=== PATIENT | female | born 2000 | race American Indian/Alaskan Native ===

== ENCOUNTER 2023-11-28 03:31 | Emergency (ER) | payer SELFPAY ==
[2023-11-28] MEDS: Alum Hydro/Mag Hydro/Simeth XS 15 ML, Lidocaine 2% 5 ML PO ONE (04:07)
[2023-11-28] MEDS: Sodium Chloride 0.9% 10 ML Syringe FLUSH PRN (04:17)
[2023-11-28] MEDS: Sodium Chloride 0.9% 2.5 ML Syringe FLUSH PRN (04:17)
[2023-11-28 04:19] LABS: BASOPHILS ABSOLUTE AUTO 0.03 K/uL (0.00-0.20); BASOPHILS PERCENT AUTO 0.2 % (0.0-1.0); EOSINOPHILS ABSOLUTE AUTO 0.21 K/uL (0.00-0.45); EOSINOPHILS PERCENT AUTO 1.7 % (0.0-6.0); HEMATOCRIT 37.7 % (37.0-47.0); HEMOGLOBIN 11.8 g/dL (12.0-16.0); IMMATURE GRAN ABSOLUTE AUTO 0.06 K/uL (0.00-0.05); IMMATURE GRAN PERCENT AUTO 0.5 % (0.0-0.4); LYMPHOCYTES ABSOLUTE AUTO 3.68 K/uL (1.00-4.80); LYMPHOCYTES PERCENT AUTO 30.2 % (24.0-44.0); MEAN CORPUSCULAR HEMOGLOBIN 27.1 pg (28.0-32.0); MEAN CORPUSCULAR HGB CONC 31.3 g/dL (32.0-36.0); MEAN CORPUSCULAR VOLUME 86.7 fL (83.0-99.0); MEAN PLATELET VOLUME 10.1 fL (9.4-12.3); MONOCYTES ABSOLUTE AUTO 0.63 K/uL (0.00-0.80); MONOCYTES PERCENT AUTO 5.2 % (0.0-8.0); NEUTROPHILS ABSOLUTE AUTO 7.56 K/uL (1.80-7.70); NEUTROPHILS PERCENT AUTO 62.2 % (41.0-71.0); PLATELET COUNT,PLT 320 K/uL (150-400); RED BLOOD CELL COUNT 4.35 M/uL (4.10-5.30); WHITE BLOOD CELL COUNT,WBC 12.17 K/uL (3.9-11.3)
[2023-11-28 04:46] LABS: A/G RATIO 0.8 (0.9-1.6); ALANINE AMINOTRANSFERASE,ALT 85 IU/L (14-63); ALBUMIN 3.1 g/dL (3.4-5.0); ALKALINE PHOSPHATASE 118 U/L (46-116); ASPARTATE AMNIOTRANSFERASE,AST 163 IU/L (15-37); BILIRUBIN TOTAL 0.2 mg/dL (0.2-1.0); BLOOD UREA NITROGEN,BUN 21 mg/dL (7.0-18.0); CALCIUM 8.2 mg/dL (8.5-10.1); CARBON DIOXIDE,CO2 26.6 mmol/L (21.0-32.0); CHLORIDE,CL 105 mmol/L (98-107); CREATININE 0.8 mg/dL (0.6-1.0); EST CRCL DRUG DOSING (CG) 99.25 mL/min; GLUCOSE RANDOM 92 mg/dL (74-106); LIPASE 72 U/L (16-77); POTASSIUM,K 4.4 mmol/L (3.5-5.1); PROTEIN TOTAL,TP 6.8 g/dL (6.4-8.2); SODIUM,NA 140 mmol/L (136-145)
[2023-11-28 04:59] LABS: ESTIMATED GFR 107 mL/min (>60)
[2023-11-28 05:33] LABS: AMPHETAMINES SCREEN, URINE NEGATIVE (CUTOFF=500); BARBITURATE SCREEN,URINE NEGATIVE (CUTOFF=200); BENZODIAZEPINES SCREEN,URINE NEGATIVE (CUTOFF=150); BUPRENORPHINE SCREEN,URINE NEGATIVE (CUTOFF=10); METHADONE SCREEN, URINE NEGATIVE (CUTOFF=200); METHAMPHETAMINES SCREEN, URINE NEGATIVE (CUTOFF=500); OXYCODONE SCREEN,URINE NEGATIVE (CUT0FF=100); PCP SCREEN,URINE NEGATIVE (CUTOFF=25); THC SCREEN,URINE 20 NG/ML NEGATIVE (CUTOFF=50)
== END 2023-11-28 09:29 | disposition home or self-care (01) ==
LOC: MW.ED 03:31
DX: K80.50 Calculus of bile duct without cholangitis or cholecystitis without obstruction (principal)
CPT/HCPCS: 36415; 71045; 76705; 80053; 80305; 83690; 84484; 84703; 85025; 85379; 93005; 99285; A9270; J3490; 93010; 99283

== ENCOUNTER 2024-03-20 22:55 | Emergency (ER) | payer MEDICAID ==
[2024-03-20] MEDS ORDERED: Sodium Chloride 0.9% 10 ML Syringe FLUSH PRN (23:02)
[2024-03-20 23:23] LABS: BASOPHILS ABSOLUTE AUTO 0.03 K/uL (0.00-0.20); BASOPHILS PERCENT AUTO 0.3 % (0.0-1.0); EOSINOPHILS PERCENT AUTO 1.1 % (0.0-6.0); HEMATOCRIT 39.4 % (37.0-47.0); HEMOGLOBIN 12.9 g/dL (12.0-16.0); IMMATURE GRAN ABSOLUTE AUTO 0.03 K/uL (0.00-0.05); IMMATURE GRAN PERCENT AUTO 0.3 % (0.0-0.4); LYMPHOCYTES ABSOLUTE AUTO 2.53 K/uL (1.00-4.80); LYMPHOCYTES PERCENT AUTO 26.7 % (24.0-44.0); MEAN CORPUSCULAR HEMOGLOBIN 27.8 pg (28.0-32.0); MEAN CORPUSCULAR HGB CONC 32.7 g/dL (32.0-36.0); MEAN CORPUSCULAR VOLUME 84.9 fL (83.0-99.0); MEAN PLATELET VOLUME 9.7 fL (9.4-12.3); MONOCYTES ABSOLUTE AUTO 0.54 K/uL (0.00-0.80); MONOCYTES PERCENT AUTO 5.7 % (0.0-8.0); NEUTROPHILS ABSOLUTE AUTO 6.24 K/uL (1.80-7.70); NEUTROPHILS PERCENT AUTO 65.9 % (41.0-71.0); PLATELET COUNT,PLT 358 K/uL (150-400); RED BLOOD CELL COUNT 4.64 M/uL (4.10-5.30); WHITE BLOOD CELL COUNT,WBC 9.47 K/uL (3.9-11.3)
[2024-03-20] MEDS ORDERED: Morphine 4 MG/ML Syringe IVPUSH PRN (23:23)
[2024-03-20] MEDS: Pantoprazole 40 MG in Sodium Chloride 0.9% 10 ML IVPUSH ONE (23:29)
[2024-03-20] MEDS: droPERidol 5 MG/2 ML SDV IVPUSH ONE (23:30)
[2024-03-20] MEDS: Sodium Chloride 0.9% 1,000 ML IV ONE (23:42)
[2024-03-20 23:52] LABS: A/G RATIO 0.9 (0.9-1.6); ALANINE AMINOTRANSFERASE,ALT 364 IU/L (14-63); ALBUMIN 3.4 g/dL (3.4-5.0); ALKALINE PHOSPHATASE 252 U/L (46-116); ASPARTATE AMNIOTRANSFERASE,AST 422 IU/L (15-37); BILIRUBIN TOTAL 0.5 mg/dL (0.2-1.0); BLOOD UREA NITROGEN,BUN 10 mg/dL (7.0-18.0); CALCIUM 8.4 mg/dL (8.5-10.1); CARBON DIOXIDE,CO2 29.2 mmol/L (21.0-32.0); CHLORIDE,CL 106 mmol/L (98-107); CREATININE 0.8 mg/dL (0.6-1.0); EST CRCL DRUG DOSING (CG) 103.26 mL/min; GLUCOSE RANDOM 130 mg/dL (74-106); LIPASE 61 U/L (16-77); POTASSIUM,K 3.6 mmol/L (3.5-5.1); PRO B-TYPE NATRIUR PEPT,BNPPRO 26 pg/mL (0-125); PROTEIN TOTAL,TP 7.4 g/dL (6.4-8.2); SODIUM,NA 143 mmol/L (136-145)
[2024-03-20 23:55] LABS: ESTIMATED GFR 107 mL/min (>60)
[2024-03-21] MEDS: Iopamidol 755 MG/ML 500 ML Multipack Bottle IVPUSH ONE (00:09)
[2024-03-21] MEDS ORDERED: Morphine 4 MG/ML Syringe IVPUSH PRN (01:33)
[2024-03-21] MEDS: Sodium Chloride 0.9% 1,000 ML IV SCH (02:14)
[2024-03-21 04:21] LABS: A/G RATIO 0.8 (0.9-1.6); BILIRUBIN TOTAL 0.6 mg/dL (0.2-1.0); CALCIUM 8.2 mg/dL (8.5-10.1); CARBON DIOXIDE,CO2 24.6 mmol/L (21.0-32.0); CREATININE 0.7 mg/dL (0.6-1.0); EST CRCL DRUG DOSING (CG) 118.01 mL/min; POTASSIUM,K 4.2 mmol/L (3.5-5.1); PROTEIN TOTAL,TP 6.9 g/dL (6.4-8.2)
== END 2024-03-21 12:33 ==
LOC: MW.ED 22:55
DX: K80.50 Calculus of bile duct without cholangitis or cholecystitis without obstruction (principal); R06.02 Shortness of breath; R10.11 Right upper quadrant pain; R10.13 Epigastric pain; R74.01 Elevation of levels of liver transaminase levels; R07.9 Chest pain, unspecified; Z75.8 Other problems related to medical facilities and other health care
CPT/HCPCS: 36415; 71045; 74177; 74181; 76705; 80053; 83690; 83735; 83880; 84484; 84703; 85025; 96361; 96374; 96375; 99285; J1790; J2470; J3490; J7030; Q9967; 93010